=== PATIENT | female | born 1990 | race Caucasian/White ===

== ENCOUNTER 2023-03-27 15:00 | Outpatient (RCR) | payer OTHER, SELFPAY ==
--- NOTE | 2023-01-13 16:13 | OT.OP.EVAL ---
Visit Care Team Role Provider Type Alex Dominguez DO Family Provider Non-Staff Primary Care Provider Specialty: Medical Address: [address] [place] [address], [facility] [place], [address] Email: Vinita Carr MD Attending Provider Non-Staff Referring Provider Specialty: Medical Address: [address] [place] [address], [id number] Email: Occupational Therapy Initial Evaluation OT Outpatient Adult Evaluation Start: 01/13/23 15:41 Freq: Status: Active Protocol: Document 01/13/23 15:42 AMS (Rec: 01/13/23 16:12 AMS [id number]) General Information - Adult Plan of Care Dates 01/13/23 - 03/10/23 Insurance Information Prime Visit Start Time 15:00 Visit Stop Time 15:30 Total Visit Minutes 30 Treatment Setting Outpatient Care Note Type Initial Evaluation Identification Confirmed Yes Identification Confirmed By Self Goals Halfway Goals 1. Maame will be modified independent with execution of home exercise program utilizing provided written and visual instructions from therapist. 2. Maame will present with increased ability to engage in meaningful activities in a variety of environments 2a. This will be evidenced by obtaining a score of 15.00 or less on QuickDASH UE Outcome Measure. Assessment/Plan Treatment Assessment Maame is a 33 year-old right hand dominant female referred to outpatient OT secondary to R CTS. 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 Treatment included ice therapy, heat, passive distal UE stretches and wearing of R wrist brace at night. Indication of 3 out of 10 on Pain Assessment Grid relative to volar surface of R wrist and 7 out of 10 on Pain Assessment Grid relative to volar and dorsal 3rd, 4th and 5th digits when numbness occurs predominantly at night despite wearing of R wrist brace. QuickDASH UE Outcome Measure Score = 27.27; QuickDASH UE Outcome Measure Work Module Score = 12.5. Numbness/tingling reported in the 2nd and 3rd digits bilaterally w/ Reverse Phalen' s Test. However, report of numbness presenting in the 3rd , 4th and 5th digits of the R hand on the volar surface 3-4 inches distal to R wrist. c/o dorsal R thumb pain/discomfort w/ thumb tuck MP -> prox radial R wrist; however, no c/ o pain w/ strength testing. (+ ) bilateral thumb add tightness. 0-65 degrees active R wrist flex; 0-65 degrees active R wrist ext; 0-20 degrees active R wrist [address]; 0-35 degrees active R wrist UD. 0-70 degrees active L wrist flex; 0 -62 degrees active L wrist ext ; 0-20 degrees active L wrist RD; 0-35 degrees active L wrist UD. 62.0# of force R stem crusher ( compared to norm for women 30- 34 years of age 78.7 +/- 19.2) vs 59.0# of force L stem crusher ( compared to norm for women 30- 34 years of age 68.0 +/- 17.7) ; 52.0# of force R stem crusher w/ elbow extended vs 56.0# of force L stem crusher w/ elbow extended ; 13.0# of force R lateral pinch (compared to norm for women 30-34 years of age 18.7 +/- 3.0) vs 13.5# of force L lateral pinch (compared to norm for women 30-34 years of age 17.8 +/- 3.6); 8.0# of force R tip pinch (compared to norm for women 30-34 years of age 12.6 +/- 3.0) vs 7.5# of force L tip pinch (compared to norm for women 30-34 years of age 11.7 +/- 2.8) ; 10.5# of force R 3-jaw pinch (compared to norm for women 30-34 years of age 19.3 +/- 15.0) vs 11.0# of force L 3-jaw pinch ( compared to norm for women 30- 34 years of age 18.1 +/- 4.8). (-) c/o finger/hand pain/ discomfort w/ finger/stem crusher strength testing. Maame would likely benefit from home exercise program, which addresses weakness of hands/ fingers, range of motion, and change in sensation. Recommend assessing wrist strength. Home Exercise Program 01/13/23 = carpal ligament x 20 to 30 sec at wall; median nerve glide; thumb add self- myofascial technique 20-30 sec ; passive wrist flex and passive wrist ext 20-30 sec. Length of treatment (weeks) 8 Plan of Care Start Date 01/13/23 Plan of Care End Date 03/10/23 Treatment Frequency Once a Week Therapeutic Contents Active Range of Motion, Adaptive Equipment Education, Client Education,Functional Activities,Home Exercise Program,Joint Protection, Manual Therapy,Education, Neurodevelopment Treatment, Neuromuscular Re-Education, Self-Care,Stretching/ Flexibility Activities, Therapeutic Activities, Therapeutic Exercises, Modalities Modalities As Needed,As Prescribed Additional Types of Modalities Ice/Heat/Contrast baths/ Ultrasound/Paraffin
--- NOTE | 2023-02-05 16:05 | OT.OP.TRT ---
Visit Care Team Role Provider Type Alex Dominguez DO Family Provider Non-Staff Primary Care Provider Specialty: Medical Address: [address] [place] [address], [facility] [place], [address] Email: Vinita Carr MD Attending Provider Non-Staff Referring Provider Specialty: Medical Address: [address] [place] [address], [id number] Email: Occupational Therapy Treatment Note OT Outpatient Treatment Note - Adult Start: 01/13/23 15:41 Freq: Status: Active Protocol: Document 02/05/23 15:57 AMS (Rec: 02/05/23 16:05 AMS [id number]) OT Outpatient Adult Treatment Note Session Time Visit Start Time 15:00 Visit Stop Time 15:45 Total Visit Minutes 45 Visit Information Plan of Care Dates 01/13/23 - 03/10/23 Insurance Information [facility] Setting Treatment Setting Outpatient Care Visit Type Note Type Treatment Note General Information General Information Maame is a 33 year-old right hand dominant female referred to outpatient OT secondary to R CTS. 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 Treatment included ice therapy, heat, passive distal UE stretches and wearing of R wrist brace at night. - Subjective Identification Type Name Identification Reconciled With Medical Record Patient/Caregiver Compliance with Home Excellent Exercise Program - Objective Objective Measurements Please refer to below for progress towards meeting established OT goals: Jingle Writer Goals 1. Maame will be modified independent with execution of home exercise program utilizing provided written and visual instructions from therapist. 2. Maame will present with increased ability to engage in meaningful activities in a variety of environments 2a. This will be evidenced by obtaining a score of 15.00 or less on QuickDASH UE Outcome Measure. - Treatment 1 Descriptor Ultrasound. 20% duty cycle. 2. 2 w/cm2. x 8 minutes. Addressing inflammation. Skin intact pre- and post- treatment. Exercises 1 Descriptor Hand/Pinch strengthening. Medium firm theraputty. 2 x 10. Lateral razo pinch. 2 x 10. Lateral razo pinch w/ pull of theraputty. 3 x 10. Tip pinch. 2 x 10. Digit flex. - Assessment Assessment of Improvement (+) compliance w/ home exercise program. (+) c/o pain /discomfort of R thumb w/ thumb tuck and active wrist UD ; sensitivity to palpation. Advanced HEP; provision of medium firm green theraputty for home utilization. Recommend pursuing referral for outpatient PT given c/o R sh pain/discomfort w/ h/o pain /discomfort of R lateral/ posterior neck. Maame reported that she saw her PCP today and they recommended making another appt to address need for PT referral. Maame will be relocating to [place] in approx 3 weeks. Maame would likely benefit from home exercise program, which addresses weakness of hands/ fingers, range of motion, and change in sensation. Recommend assessing wrist strength. Home Exercise Program 02/05/23 = R thumb tuck w/ UD w / hold 20 to 30 sec. Provided with medium firm green theraputty for home use; discussed storage and care of theraputty. Instructed in digit/pinch strengthening ( including lateral razo pinch, tip pinch, gross digit flexion ). 01/13/23 = carpal ligament x 20 to 30 sec at wall; median nerve glide; thumb add self- myofascial technique 20-30 sec ; passive wrist flex and passive wrist ext 20-30 sec. - Plan Therapy Recommendations Continue with Current Program, Advance per Rehabilitation Protocol
--- NOTE | 2023-02-19 14:20 | OT.OP.TRT ---
Visit Care Team Role Provider Type Alex Dominguez DO Family Provider Non-Staff Primary Care Provider Specialty: Medical Address: [address] [place] [address], [facility] [place], [address] Email: Vinita Carr MD Attending Provider Non-Staff Referring Provider Specialty: Medical Address: [address] [place] [address], [phone] Email: Occupational Therapy Treatment Note OT Outpatient Treatment Note - Adult Start: 01/13/23 15:41 Freq: Status: Active Protocol: Document 02/19/23 14:14 AMS (Rec: 02/19/23 14:20 AMS [id number]) OT Outpatient Adult Treatment Note Session Time Visit Start Time 13:15 Visit Stop Time 14:00 Total Visit Minutes 45 Visit Information Plan of Care Dates 01/13/23 - 03/10/23 Insurance Information [facility] Setting Treatment Setting Outpatient Care Visit Type Note Type Treatment Note General Information General Information Maame is a 33 year-old right hand dominant female referred to outpatient OT secondary to R CTS. 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 Treatment included ice therapy, heat, passive distal UE stretches and wearing of R wrist brace at night. - Subjective Identification Type Name Identification Reconciled With Medical Record Observations Report of numbness post- previous treatment session in pm. Patient/Caregiver Compliance with Home Excellent Exercise Program - Objective Objective Measurements Please refer to below for progress towards meeting established OT goals: Mcfp Goals 1. Maame will be modified independent with execution of home exercise program utilizing provided written and visual instructions from therapist. 2. Maame will present with increased ability to engage in meaningful activities in a variety of environments 2a. This will be evidenced by obtaining a score of 15.00 or less on QuickDASH UE Outcome Measure. - Treatment 1 Descriptor Ultrasound. 20% duty cycle. 2. 2 w/cm2. x 10 minutes. Addressing inflammation. Skin intact pre- and post- treatment. Exercises 2 Descriptor Thumb exercises. Thumb opposition to finger pads. 1 x 5 cycles. Thumb opposition to base of fingers. 1 x 5 cycles. Resisted thumb extension. Medium sized rubberband - rubberband positioned slightly distal to MPJ. 3 x 10. Resisted thumb abduction. Medium sized rubberband - rubberband positioned slightly distal to MPJ. 3 x 10. 1 Descriptor Hand/Pinch strengthening. Medium firm theraputty. 2 x 10. Lateral razo pinch. 2 x 10. Lateral razo pinch w/ pull of theraputty. 3 x 10. Tip pinch. 2 x 10. Digit flex. - Assessment Assessment of Improvement Currently in process of moving to new home located in [place]. Report of numbness in pm post- previous treatment session. (-) c/o pain/ discomfort w/ thumb opposition to pads of fingers and/or to base of fingers 2-5. (-) c/o pain/discomfort w/ thumb tuck w/ UD. Introduced thumb strengthening w/ minimal resistance relative to thumb abd and thumb extension; tolerated these exercises w/o signs of discomfort (verbal or nonverbal). Overall, good session. Maame would likely benefit from home exercise program, which addresses weakness of hands/ fingers, range of motion, and change in sensation. Recommend assessing wrist strength. Home Exercise Program 02/19/23 = Thumb strengthening via utilization of medium rubberband. Rec thumb ext and thumb abd 3 x 10. 02/05/23 = R thumb tuck w/ UD w / hold 20 to 30 sec. Provided with medium firm green theraputty for home use; discussed storage and care of theraputty. Instructed in digit/pinch strengthening ( including lateral razo pinch, tip pinch, gross digit flexion ). 01/13/23 = carpal ligament x 20 to 30 sec at wall; median nerve glide; thumb add self- myofascial technique 20-30 sec ; passive wrist flex and passive wrist ext 20-30 sec. - Plan Therapy Recommendations Advance per Rehabilitation Protocol
--- NOTE | 2023-02-27 16:00 | OT.OP.TRT ---
Visit Care Team Role Provider Type Alex Dominguez DO Family Provider Non-Staff Primary Care Provider Specialty: Medical Address: [address] [place] [address], [place], [address] Email: Vinita Carr MD Attending Provider Non-Staff Referring Provider Specialty: Medical Address: [address] [place] [address], [id number] Email: Occupational Therapy Treatment Note OT Outpatient Treatment Note - Adult Start: 01/13/23 15:41 Freq: Status: Active Protocol: Document 02/27/23 16:00 AMS (Rec: 02/28/23 09:01 AMS [id number]) OT Outpatient Adult Treatment Note Session Time Visit Start Time 14:55 Visit Stop Time 15:40 Total Visit Minutes 45 Visit Information Plan of Care Dates 01/13/23 - 03/10/23 Insurance Information [facility] Setting Treatment Setting Outpatient Care Visit Type Note Type Treatment Note General Information General Information Maame is a 33 year-old right hand dominant female referred to outpatient OT secondary to R CTS. 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 Treatment included ice therapy, heat, passive distal UE stretches and wearing of R wrist brace at night. - Subjective Identification Type Name Identification Reconciled With Medical Record Observations Maame reports that she starts PT for her R shoulder next week. Patient/Caregiver Compliance with Home Excellent Exercise Program - Objective Objective Measurements Please refer to below for progress towards meeting established OT goals: Behavioral Health Specialist Goals 1. Maame will be modified independent with execution of home exercise program utilizing provided written and visual instructions from therapist. 2. Maame will present with increased ability to engage in meaningful activities in a variety of environments 2a. This will be evidenced by obtaining a score of 15.00 or less on QuickDASH UE Outcome Measure. - Treatment 1 Descriptor Ultrasound. 20% duty cycle. 2. 0 w/cm2. x 10 minutes. Addressing inflammation. Skin intact pre- and post- treatment. Exercises 5 Descriptor Wrist strengthening w/ use of weighted spherical ball. Underhand toss. 3.3# spherical ball. 3 x 15. Overhand toss. 3.3# spherical ball. 3 x 15. Toss between hands. 3.3# spherical ball. 3 x 10. 4 Descriptor Wrist strengthening w/ use of DB. R Wrist ext. 3 x 15. 3# DB. Seated. Use of LE. R Wrist flex. 3 x 15. 3# DB. Seated. Use of LE. R Wrist RD. 3 x 15. 3# DB. Seated. Use of LE. R Wrist UD. 3 x 15. 3# DB. Seated. 3 Descriptor PROM. Passive wrist stretches. Bilateral. 20 sec hold per stretch. Self-release. Carpal ligament. R. x 20 sec hold per stretch. 2 Descriptor Thumb exercises. Thumb opposition to finger pads. 1 x 5 cycles. Thumb opposition to base of fingers. 1 x 5 cycles. Resisted thumb extension. Medium sized rubberband - rubberband positioned slightly distal to MPJ. 3 x 10. Resisted thumb abduction. Medium sized rubberband - rubberband positioned slightly distal to MPJ. 3 x 10. 1 Descriptor Hand/Pinch strengthening. Medium firm theraputty. 2 x 10. Lateral razo pinch. 2 x 10. Lateral razo pinch w/ pull of theraputty. 3 x 10. Tip pinch. 2 x 10. Digit flex. - Assessment Assessment of Improvement Denial of pain/discomfort w/ thumb tuck and wrist UD; denial of pain/discomfort w/ isometric resistance w/ lateral razo pinch and thumb ext. Numbness reported w/ carpal ligament stretch at wall R w/ ceasing of stretch post 20 seconds; report of numbness second set of spherical weighted ball forearm pronation/wrist ext/ overhand toss and catch. Able to complete 3 sets w/ rest break and report of relief w/ shaking of hand w/ wrist in ext. Rec introducing resisted home program for wrist strengthening w/ use of TB. Overall, good session. Maame would likely benefit from home exercise program, which addresses weakness of hands/ fingers, range of motion, and change in sensation. Recommend assessing wrist strength. Home Exercise Program 02/19/23 = Thumb strengthening via utilization of medium rubberband. Rec thumb ext and thumb abd 3 x 10. 02/05/23 = R thumb tuck w/ UD w / hold 20 to 30 sec. Provided with medium firm green theraputty for home use; discussed storage and care of theraputty. Instructed in digit/pinch strengthening ( including lateral razo pinch, tip pinch, gross digit flexion ). 01/13/23 = carpal ligament x 20 to 30 sec at wall; median nerve glide; thumb add self- myofascial technique 20-30 sec ; passive wrist flex and passive wrist ext 20-30 sec. - Plan Therapy Recommendations Advance per Rehabilitation Protocol
--- NOTE | 2023-03-06 16:00 | OT.OP.TRT ---
Visit Care Team Role Provider Type Alex Dominguez DO Family Provider Non-Staff Primary Care Provider Specialty: Medical Address: [address] [place] [address], [place], [address] Email: Vinita Carr MD Attending Provider Non-Staff Referring Provider Specialty: Medical Address: [address] [place] [address], [phone] Email: Occupational Therapy Treatment Note OT Outpatient Treatment Note - Adult Start: 01/13/23 15:41 Freq: Status: Active Protocol: Document 03/06/23 16:00 AMS (Rec: 03/07/23 10:49 AMS [id number]) OT Outpatient Adult Treatment Note Session Time Visit Start Time 15:00 Visit Stop Time 15:45 Total Visit Minutes 45 Visit Information Plan of Care Dates 01/13/23 - 03/10/23 Insurance Information [facility] Setting Treatment Setting Outpatient Care Visit Type Note Type Treatment Note General Information General Information Maame is a 33 year-old right hand dominant female referred to outpatient OT secondary to R CTS. 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 Treatment included ice therapy, heat, passive distal UE stretches and wearing of R wrist brace at night. - Subjective Identification Type Name Identification Reconciled With Medical Record Observations Maame reported that she started PT for her R shoulder this morning. Patient/Caregiver Compliance with Home Excellent Exercise Program - Objective Objective Measurements Please refer to below for progress towards meeting established OT goals: Plate Glass Installer Helper Goals 1. Maame will be modified independent with execution of home exercise program utilizing provided written and visual instructions from therapist. 2. Maame will present with increased ability to engage in meaningful activities in a variety of environments 2a. This will be evidenced by obtaining a score of 15.00 or less on QuickDASH UE Outcome Measure. - Treatment 1 Descriptor Ultrasound. 20% duty cycle. 2. 0 w/cm2. x 10 minutes. Addressing inflammation. Skin intact pre- and post- treatment. Exercises 7 Descriptor Wrist strengthening w/ use of dowel. Wrist flex. 5# DB. 5 cycles Wrist ext. 5# DB. 5 cycles 6 Descriptor Wrist strengthening w/ use of TB R Wrist ext. 3 x 15. TB #4. Seated. Use of LE. R Wrist flex. 3 x 15. TB #4. Seated. Use of LE. R Wrist RD. 3 x 15. TB #4. Seated. Use of LE. R Wrist UD. 3 x 15. TB #4. Seated. Use of TT 5 Descriptor Wrist strengthening w/ use of weighted spherical ball. Underhand toss. 3.3# spherical ball. 3 x 15. Overhand toss. 3.3# spherical ball. 3 x 15. Toss between hands. 4.4# spherical ball. 3 x 15. 4 Descriptor Wrist strengthening w/ use of DB. R Wrist ext. 3 x 15. 3# DB. Seated. Use of LE. R Wrist flex. 3 x 15. 3# DB. Seated. Use of LE. R Wrist RD. 3 x 15. 3# DB. Seated. Use of LE. R Wrist UD. 3 x 15. 3# DB. Seated. 3 Descriptor PROM/Nerve glides/Tendon gliding Passive wrist stretches. Bilateral. 20 sec hold per stretch. Self-release. Carpal ligament. R. x 20 sec hold per stretch. Median nerve glide - thumb stretch x 2. Modified median nerve glide. x 2. Tendon gliding. x 7 cycles. - Assessment Assessment of Improvement Initiated wrist strengthening w/ utilization of theraband; provided TB #4 for home utilization. Instructed in tendon glides and reviewed passive range of motion exercises, median nerve glides , and self-myofascial releases . Upgraded resistance exercises completed in treatment session. Overall, good session. Maame would likely benefit from home exercise program, which addresses weakness of hands/ fingers, range of motion, and change in sensation. Recommend assessing wrist strength. Home Exercise Program 03/06/23 = Provided w/ TB #4 for home utilization for wrist strengthening. 02/19/23 = Thumb strengthening via utilization of medium rubberband. Rec thumb ext and thumb abd 3 x 10. 02/05/23 = R thumb tuck w/ UD w / hold 20 to 30 sec. Provided with medium firm green theraputty for home use; discussed storage and care of theraputty. Instructed in digit/pinch strengthening ( including lateral razo pinch, tip pinch, gross digit flexion ). 01/13/23 = carpal ligament x 20 to 30 sec at wall; median nerve glide; thumb add self- myofascial technique 20-30 sec ; passive wrist flex and passive wrist ext 20-30 sec. - Plan Therapy Recommendations Advance per Rehabilitation Protocol
--- NOTE | 2023-03-13 16:00 | OT.OPPOC ---
Physical, Occupational & Speech Therapy At [facility] Maame Griggs [id number] 1990 Visit Care Team Role Provider Type Alex Dominguez DO Family Provider Non-Staff Primary Care Provider Address: [address] [place] [address], [place], [address] Vinita Carr MD Attending Provider Non-Staff Referring Provider Address: [address] [place] [address], [id number] Occupational Therapy Plan of Care OT Outpatient Adult Evaluation Start: 01/13/23 15:41 Freq: Status: Active Protocol: Document 01/13/23 15:42 AMS (Rec: 01/13/23 16:12 AMS [id number]) General Information - Adult Visit Information Plan of Care Dates 01/13/23 - 03/10/23 Insurance Information Prime Session Time Visit Start Time 15:00 Visit Stop Time 15:30 Total Visit Minutes 30 Setting Treatment Setting Outpatient Care Visit Type Note Type Initial Evaluation Identification Identification Confirmed Yes Identification Confirmed By Self Goals Emergency Medical Dispatcher Goals Emergency Medical Dispatcher Goals 1. Maame will be modified independent with execution of home exercise program utilizing provided written and visual instructions from therapist. 2. Maame will present with increased ability to engage in meaningful activities in a variety of environments 2a. This will be evidenced by obtaining a score of 15.00 or less on QuickDASH UE Outcome Measure. Assessment/Plan Assessment Treatment Assessment Maame is a 33 year-old right hand dominant female referred to outpatient OT secondary to R CTS. 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 Treatment included ice therapy, heat, passive distal UE stretches and wearing of R wrist brace at night. Indication of 3 out of 10 on Pain Assessment Grid relative to volar surface of R wrist and 7 out of 10 on Pain Assessment Grid relative to volar and dorsal 3rd, 4th and 5th digits when numbness occurs predominantly at night despite wearing of R wrist brace. QuickDASH UE Outcome Measure Score = 27.27; QuickDASH UE Outcome Measure Work Module Score = 12.5. Numbness/tingling reported in the 2nd and 3rd digits bilaterally w/ Reverse Phalen' s Test. However, report of numbness presenting in the 3rd , 4th and 5th digits of the R hand on the volar surface 3-4 inches distal to R wrist. c/o dorsal R thumb pain/discomfort w/ thumb tuck MP -> prox radial R wrist; however, no c/ o pain w/ strength testing. (+ ) bilateral thumb add tightness. 0-65 degrees active R wrist flex; 0-65 degrees active R wrist ext; 0-20 degrees active R wrist [address]; 0-35 degrees active R wrist UD. 0-70 degrees active L wrist flex; 0 -62 degrees active L wrist ext ; 0-20 degrees active L wrist RD; 0-35 degrees active L wrist UD. 62.0# of force R pump and still operator ( compared to norm for women 30- 34 years of age 78.7 +/- 19.2) vs 59.0# of force L pump and still operator ( compared to norm for women 30- 34 years of age 68.0 +/- 17.7) ; 52.0# of force R pump and still operator w/ elbow extended vs 56.0# of force L pump and still operator w/ elbow extended ; 13.0# of force R lateral pinch (compared to norm for women 30-34 years of age 18.7 +/- 3.0) vs 13.5# of force L lateral pinch (compared to norm for women 30-34 years of age 17.8 +/- 3.6); 8.0# of force R tip pinch (compared to norm for women 30-34 years of age 12.6 +/- 3.0) vs 7.5# of force L tip pinch (compared to norm for women 30-34 years of age 11.7 +/- 2.8) ; 10.5# of force R 3-jaw pinch (compared to norm for women 30-34 years of age 19.3 +/- 15.0) vs 11.0# of force L 3-jaw pinch ( compared to norm for women 30- 34 years of age 18.1 +/- 4.8). (-) c/o finger/hand pain/ discomfort w/ finger/pump and still operator strength testing. Maame would likely benefit from home exercise program, which addresses weakness of hands/ fingers, range of motion, and change in sensation. Recommend assessing wrist strength. Home Exercise Program 01/13/23 = carpal ligament x 20 to 30 sec at wall; median nerve glide; thumb add self- myofascial technique 20-30 sec ; passive wrist flex and passive wrist ext 20-30 sec. Plan Length of treatment (weeks) 8 Plan of Care Start Date 01/13/23 Plan of Care End Date 03/10/23 Treatment Frequency Once a Week Therapeutic Contents Active Range of Motion, Adaptive Equipment Education, Client Education,Functional Activities,Home Exercise Program,Joint Protection, Manual Therapy,Education, Neurodevelopment Treatment, Neuromuscular Re-Education, Self-Care,Stretching/ Flexibility Activities, Therapeutic Activities, Therapeutic Exercises, Modalities Modalities As Needed,As Prescribed Additional Types of Modalities Ice/Heat/Contrast baths/ Ultrasound/Paraffin Functional Wrist/Hand Scan Hand Side Sensory Assessment Sensory Profile2 OT Outpatient Treatment Note - Adult Start: 01/13/23 15:41 Freq: Status: Active Protocol: Document 03/13/23 16:00 AMS (Rec: 03/14/23 08:30 AMS [id number]) OT Outpatient Adult Treatment Note Session Time Visit Start Time 15:00 Visit Stop Time 15:45 Total Visit Minutes 45 Visit Information Visit Number [id number] Plan of Care Dates 03/10/23 - 04/21/23 Insurance Information Prime; EVAL CHARGE ONLY; *auth 12 visits Setting Treatment Setting Outpatient Care Visit Type Note Type Progress Note General Information General Information Maame is a 33 year-old right hand dominant female referred to outpatient OT secondary to R CTS. 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 Treatment included ice therapy, heat, passive distal UE stretches and wearing of R wrist brace at night. - Subjective Identification Type Name Identification Reconciled With Medical Record Observations No new concerns were reported. Patient/Caregiver Compliance with Home Excellent Exercise Program - Objective Objective Measurements Please refer to below for progress towards meeting established OT goals: Emergency Medical Dispatcher Goals 1. Maame will be modified independent with execution of home exercise program utilizing provided written and visual instructions from therapist. 2. Maame will present with increased ability to engage in meaningful activities in a variety of environments 2a. This will be evidenced by obtaining a score of 15.00 or less on QuickDASH UE Outcome Measure. - Exercises 7 Descriptor Wrist strengthening w/ use of dowel. Wrist flex. 5# DB. 5 cycles Wrist ext. 5# DB. 5 cycles 6 Descriptor Wrist strengthening w/ use of TB R Wrist ext. 3 x 15. TB #4. Seated. Use of LE. R Wrist flex. 3 x 15. TB #4. Seated. Use of LE. R Wrist RD. 3 x 15. TB #4. Seated. Use of LE. R Wrist UD. 3 x 15. TB #4. Seated. Use of TT 5 Descriptor Wrist strengthening w/ use of weighted spherical ball. Wrist arc. 4.4# spherical ball . 3 x 15. Underhand toss. 4.4# spherical ball. 3 x 15. Overhand toss. 4.4# spherical ball. 3 x 15. Toss between hands. 4.4# spherical ball. 3 x 15. 3 Descriptor PROM/Nerve glides/Tendon gliding Passive wrist stretches. Bilateral. 20 sec hold per stretch. Self-release. Carpal ligament. R. x 20 sec hold per stretch. Median nerve glide - thumb stretch x 2. Modified median nerve glide. x 2. Tendon gliding. x 7 cycles. - Assessment Assessment of Improvement Maame has made some progress w/ outpatient OT; therapist has been able to upgrade exercises completed in treatment session, including amount of resistance w/ utilization of weighted spherical ball, and advance home exercise program, including wrist strengthening , passive range of motion, tendon glides, median nerve glide, and utilization of resistance putty. Exercises were also provided to address thumb pain/discomfort when there was c/o discomfort w/ R thumb tuck into palm suggesting inflammation of extensor/abd. Maame is no longer c/o of thumb pain and is able to execute thumb tuck w/ wrist UD w/ no exacerbation of symptoms. Maame cont to intermittently c/o median nerve compression and discomfort is impacting her day-to-day life. Maame has recently started PT to address R shoulder pain/discomfort as well. Therapist introduced paraffin bath as a modality in today's treatment session; will need to follow-up to determine impact on flexibility/sensation and pain /discomfort. Cont outpatient OT is rec at this time w/ rec to return to PCP to explore less conservative measures of treatment as needed/vs evaluation by UE privacy specialist. Home Exercise Program 03/13/23 = Visual/Written instructions provided for passive wrist flex, passive wrist ext, median nerve glide, tendon gliding, and wrist strength utilizing previously provided TB #4 = wrist ext/ wrist flex/wrist RD/wrist UD 03/06/23 = Provided w/ TB #4 for home utilization for wrist strengthening. 02/19/23 = Thumb strengthening via utilization of medium rubberband. Rec thumb ext and thumb abd 3 x 10. 02/05/23 = R thumb tuck w/ UD w / hold 20 to 30 sec. Provided with medium firm green theraputty for home use; discussed storage and care of theraputty. Instructed in digit/pinch strengthening ( including lateral razo pinch, tip pinch, gross digit flexion ). 01/13/23 = carpal ligament x 20 to 30 sec at wall; median nerve glide; thumb add self- myofascial technique 20-30 sec ; passive wrist flex and passive wrist ext 20-30 sec. - Plan Therapy Recommendations Advance per Rehabilitation Protocol Comment 6 weeks Frequency of Treatment Once a Week Therapeutic Contents Active Range of Motion, Adaptive Equipment Education, Client Education,Functional Activities,Home Exercise Program,Joint Protection, Manual Therapy,Education, Neurodevelopment Treatment, Neuromuscular Re-Education, Self-Care,Stretching/ Flexibility Activities, Therapeutic Activities, Therapeutic Exercises, Modalities Modalities As Needed,As Prescribed Additional Types of Modalities Heat/Ice/Contrast Baths/ Ultrasound/Paraffin bath Electronically Signed by: Pura Griggs OT 03/14/23 0938 If you are in agreement with this Plan of Care, please return a signed and dated copy. I have reviewed this Plan of Care and certify that the skilled therapy services above are required to meet the patient?s needs. Physician Signature Date Printed Name and Credentials Clinical Instructor Signature Printed Name and Credentials
--- NOTE | 2023-03-20 16:00 | OT.OP.TRT ---
Visit Care Team Role Provider Type Alex Dominguez DO Family Provider Non-Staff Primary Care Provider Specialty: Medical Address: [address] [place] [address], [facility] [place], [address] Email: Vinita Carr MD Attending Provider Non-Staff Referring Provider Specialty: Medical Address: [address] [place] [address], [id number] Email: Occupational Therapy Treatment Note OT Outpatient Treatment Note - Adult Start: 01/13/23 15:41 Freq: Status: Active Protocol: Document 03/20/23 16:00 AMS (Rec: 03/21/23 12:25 AMS [id number]) OT Outpatient Adult Treatment Note Session Time Visit Start Time 15:00 Visit Stop Time 15:48 Total Visit Minutes 48 Visit Information Visit Number 11/04 Plan of Care Dates 03/10/23 - 04/21/23 Insurance Information Prime; EVAL CHARGE ONLY; *auth 12 visits Setting Treatment Setting Outpatient Care Visit Type Note Type Treatment Note General Information General Information Maame is a 33 year-old right hand dominant female referred to outpatient OT secondary to R CTS. 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 Treatment included ice therapy, heat, passive distal UE stretches and wearing of R wrist brace at night. - Subjective Identification Type Name Identification Reconciled With Medical Record Observations Report of having PT this morning. Patient/Caregiver Compliance with Home Excellent Exercise Program - Objective Objective Measurements Please refer to below for progress towards meeting established OT goals: Alf Goals 1. Maame will be modified independent with execution of home exercise program utilizing provided written and visual instructions from therapist. 2. Maame will present with increased ability to engage in meaningful activities in a variety of environments 2a. This will be evidenced by obtaining a score of 15.00 or less on QuickDASH UE Outcome Measure. - Exercises 8 Descriptor Blue flexbar. Wrist flex. 3 x 15. Wrist ext. 3 x 15. Supination. 3 x 10. Pronation. 3 x 10. Flexbar twist. 3 x 10. 6 Descriptor Wrist strengthening w/ use of TB R Wrist ext. 3 x 15. TB #4. Seated. Use of LE. R Wrist flex. 3 x 15. TB #4. Seated. Use of LE. R Wrist RD. 3 x 15. TB #4. Seated. Use of LE. R Wrist UD. 3 x 15. TB #4. Seated. Use of TT 5 Descriptor Wrist strengthening w/ use of weighted spherical ball. Wrist arc. 4.4# spherical ball . 3 x 15. Underhand toss. 4.4# spherical ball. 3 x 15. Overhand toss. 4.4# spherical ball. 3 x 15. Toss between hands. 4.4# spherical ball. 3 x 15. 3 Descriptor PROM/Nerve glides/Tendon gliding Passive wrist stretches. Bilateral. 20 sec hold per stretch. Self-release. Carpal ligament. R. x 20 sec hold per stretch. Median nerve glide - thumb stretch x 2. Modified median nerve glide. x 2. Tendon gliding. x 7 cycles. - Assessment Assessment of Improvement Reviewed home exercise program recommendations = median nerve glide, tendon glides, passive wrist flex and wrist ext w/ elbow near full ext, wearing of night brace w/ positioning of wrist in slight ext, icing versus contrast baths versus paraffin for swelling management (vs taking of oral anti-inflammatory medication), and environmental modifications/adaptive equipment to avoid compression of nerve. Given continued c/o intermittent numbness and/or tingling of the distal R UE, Maame would likely benefit from nerve conduction study and referral to upper extremity legal financial specialist in order to be evaluated and be given options for less conservative methods of treatment as deemed fit by physician (e.g., CTR, corticosteroid injection, etc) . Home Exercise Program 03/13/23 = Visual/Written instructions provided for passive wrist flex, passive wrist ext, median nerve glide, tendon gliding, and wrist strength utilizing previously provided TB #4 = wrist ext/ wrist flex/wrist RD/wrist UD 03/06/23 = Provided w/ TB #4 for home utilization for wrist strengthening. 02/19/23 = Thumb strengthening via utilization of medium rubberband. Rec thumb ext and thumb abd 3 x 10. 9/13/23 = R thumb tuck w/ UD w / hold 20 to 30 sec. Provided with medium firm green theraputty for home use; discussed storage and care of theraputty. Instructed in digit/pinch strengthening ( including lateral razo pinch, tip pinch, gross digit flexion ). 01/13/23 = carpal ligament x 20 to 30 sec at wall; median nerve glide; thumb add self- myofascial technique 20-30 sec ; passive wrist flex and passive wrist ext 20-30 sec. - Plan Therapy Recommendations Advance per Rehabilitation Protocol Other Referrals UE legal financial specialist, EMG - nerve conduction study
--- NOTE | 2023-03-27 16:06 | OT.OP.DC ---
Visit Care Team Role Provider Type Alex Dominguez DO Family Provider Non-Staff Primary Care Provider Address: [address] [place] [address], [place], [address] Email: Vinita Carr MD Attending Provider Non-Staff Referring Provider Address: [address] [place] [address], [id number] Email: OT Outpatient OT Outpatient Adult Evaluation Start: 01/13/23 15:41 Freq: Status: Active Protocol: Document 01/13/23 15:42 AMS (Rec: 01/13/23 16:12 AMS [id number]) General Information - Adult Visit Information Plan of Care Dates 01/13/23 - 03/10/23 Insurance Information Prime Session Time Visit Start Time 15:00 Visit Stop Time 15:30 Total Visit Minutes 30 Setting Treatment Setting Outpatient Care Visit Type Note Type Initial Evaluation Identification Identification Confirmed Yes Identification Confirmed By Self Goals Business Education Instructor Goals Care Home Goals 1. Maame will be modified independent with execution of home exercise program utilizing provided written and visual instructions from therapist. 2. Maame will present with increased ability to engage in meaningful activities in a variety of environments 2a. This will be evidenced by obtaining a score of 15.00 or less on QuickDASH UE Outcome Measure. Assessment/Plan Assessment Treatment Assessment Maame is a 33 year-old right hand dominant female referred to outpatient OT secondary to R CTS. 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 Treatment included ice therapy, heat, passive distal UE stretches and wearing of R wrist brace at night. Indication of 3 out of 10 on Pain Assessment Grid relative to volar surface of R wrist and 7 out of 10 on Pain Assessment Grid relative to volar and dorsal 3rd, 4th and 5th digits when numbness occurs predominantly at night despite wearing of R wrist brace. QuickDASH UE Outcome Measure Score = 27.27; QuickDASH UE Outcome Measure Work Module Score = 12.5. Numbness/tingling reported in the 2nd and 3rd digits bilaterally w/ Reverse Phalen' s Test. However, report of numbness presenting in the 3rd , 4th and 5th digits of the R hand on the volar surface 3-4 inches distal to R wrist. c/o dorsal R thumb pain/discomfort w/ thumb tuck MP -> prox radial R wrist; however, no c/ o pain w/ strength testing. (+ ) bilateral thumb add tightness. 0-65 degrees active R wrist flex; 0-65 degrees active R wrist ext; 0-20 degrees active R wrist [address]; 0-35 degrees active R wrist UD. 0-70 degrees active L wrist flex; 0 -62 degrees active L wrist ext ; 0-20 degrees active L wrist RD; 0-35 degrees active L wrist UD. 62.0# of force R block mechanic ( compared to norm for women 30- 34 years of age 78.7 +/- 19.2) vs 59.0# of force L block mechanic ( compared to norm for women 30- 34 years of age 68.0 +/- 17.7) ; 52.0# of force R block mechanic w/ elbow extended vs 56.0# of force L block mechanic w/ elbow extended ; 13.0# of force R lateral pinch (compared to norm for women 30-34 years of age 18.7 +/- 3.0) vs 13.5# of force L lateral pinch (compared to norm for women 30-34 years of age 17.8 +/- 3.6); 8.0# of force R tip pinch (compared to norm for women 30-34 years of age 12.6 +/- 3.0) vs 7.5# of force L tip pinch (compared to norm for women 30-34 years of age 11.7 +/- 2.8) ; 10.5# of force R 3-jaw pinch (compared to norm for women 30-34 years of age 19.3 +/- 15.0) vs 11.0# of force L 3-jaw pinch ( compared to norm for women 30- 34 years of age 18.1 +/- 4.8). (-) c/o finger/hand pain/ discomfort w/ finger/block mechanic strength testing. Maame would likely benefit from home exercise program, which addresses weakness of hands/ fingers, range of motion, and change in sensation. Recommend assessing wrist strength. Home Exercise Program 01/13/23 = carpal ligament x 20 to 30 sec at wall; median nerve glide; thumb add self- myofascial technique 20-30 sec ; passive wrist flex and passive wrist ext 20-30 sec. Plan Length of treatment (weeks) 8 Plan of Care Start Date 01/13/23 Plan of Care End Date 03/10/23 Treatment Frequency Once a Week Therapeutic Contents Active Range of Motion, Adaptive Equipment Education, Client Education,Functional Activities,Home Exercise Program,Joint Protection, Manual Therapy,Education, Neurodevelopment Treatment, Neuromuscular Re-Education, Self-Care,Stretching/ Flexibility Activities, Therapeutic Activities, Therapeutic Exercises, Modalities Modalities As Needed,As Prescribed Additional Types of Modalities Ice/Heat/Contrast baths/ Ultrasound/Paraffin Functional Wrist/Hand Scan Hand Side Sensory Assessment Sensory Profile2 OT Outpatient Treatment Note - Adult Start: 01/13/23 15:41 Freq: Status: Active Protocol: Document 03/27/23 15:56 AMS (Rec: 03/27/23 16:05 [facility] [id number]) OT Outpatient Adult Treatment Note Session Time Visit Start Time 15:00 Visit Stop Time 15:45 Total Visit Minutes 45 Visit Information Visit Number [id number] Plan of Care Dates 03/10/23 - 04/21/23 Insurance Information Prime; EVAL CHARGE ONLY; *auth 12 visits Setting Treatment Setting Outpatient Care Visit Type Note Type Treatment Note General Information General Information Maame is a 33 year-old right hand dominant female referred to outpatient OT secondary to R CTS. 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 Treatment included ice therapy, heat, passive distal UE stretches and wearing of R wrist brace at night. - Subjective Identification Type Name Identification Reconciled With Medical Record Observations Report of having PT tomorrow morning. Indicated 1 out of 10 on Pain Assessment Grid relative to volar/dorsal surfaces of R thumb, volar surface of R wrist. QuickDASH UE Outcome Measure Score = 9. 09; QuickDASH Work Module Score = 0.00. Patient/Caregiver Compliance with Home Excellent Exercise Program - Objective Objective Measurements Please refer to below for progress towards meeting established OT goals: Care Home Goals ALL GOALS MET OF 03/27/23 1. Maame will be modified independent with execution of home exercise program utilizing provided written and visual instructions from therapist. 2. Maame will present with increased ability to engage in meaningful activities in a variety of environments 2a. This will be evidenced by obtaining a score of 15.00 or less on QuickDASH UE Outcome Measure. *MET 03/27/23; Score = 9.09 - Exercises 8 Descriptor Blue flexbar. Wrist flex. 3 x 15. Wrist ext. 3 x 15. Supination. 3 x 10. Pronation. 3 x 10. Flexbar twist. 3 x 10. 3 Descriptor PROM/Nerve glides/Tendon gliding Passive wrist stretches. Bilateral. 20 sec hold per stretch. Median nerve glide - thumb stretch x 2. Modified median nerve glide. x 2. - Assessment Assessment of Improvement Reviewed home exercise program recommendations = median nerve glide, tendon glides, passive wrist flex and wrist ext w/ elbow near full ext, wearing of night brace w/ positioning of wrist in slight ext, icing versus contrast baths versus paraffin for swelling management (vs taking of oral anti-inflammatory medication), and environmental modifications/adaptive equipment to avoid compression of nerve. Completed updated Pain Assessment Grid and indicated 1 out of 10 on pain scale (versus initial indication of 3 out of 10 on Pain Assessment Grid relative to volar surface of R wrist and 7 out of 10 on Pain Assessment Grid relative to volar and dorsal 3rd, 4th and 5th digits when numbness occurs predominantly at night despite wearing of R wrist brace). Completed updated QuickDASH UE Outcome Measure and obtained a score of 9.09 ( versus initial QuickDASH UE Outcome Measure Score of 27.27 ); completed updated QuickDASH UE Outcome Measure Work Module and obtained a score of 12.5). Maame is independent with execution of home exercise program. Thus, has met all established goals for outpatient OT. However, given continued c/o intermittent numbness and/or tingling of the distal R UE, Maame would likely benefit from nerve conduction study and referral to upper extremity epic cupid specialists in order to be evaluated and be given options for less conservative methods of treatment as deemed fit by physician (e.g., CTR, corticosteroid injection, etc) . Home Exercise Program 03/13/23 = Visual/Written instructions provided for passive wrist flex, passive wrist ext, median nerve glide, tendon gliding, and wrist strength utilizing previously provided TB #4 = wrist ext/ wrist flex/wrist RD/wrist UD 03/06/23 = Provided w/ TB #4 for home utilization for wrist strengthening. 02/19/23 = Thumb strengthening via utilization of medium rubberband. Rec thumb ext and thumb abd 3 x 10. 02/05/23 = R thumb tuck w/ UD w / hold 20 to 30 sec. Provided with medium firm green theraputty for home use; discussed storage and care of theraputty. Instructed in digit/pinch strengthening ( including lateral razo pinch, tip pinch, gross digit flexion ). 01/13/23 = carpal ligament x 20 to 30 sec at wall; median nerve glide; thumb add self- myofascial technique 20-30 sec ; passive wrist flex and passive wrist ext 20-30 sec. - Plan Therapy Recommendations Discharge from Occupational Therapy Other Referrals UE epic cupid specialists, EMG - nerve conduction study
== END 2023-04-08 11:27 | disposition home or self-care (01) ==
LOC: OT 15:00
PROVIDERS: Referring Provider Student in an Organized Health Care Education/Training Program; Visit Provider Student in an Organized Health Care Education/Training Program
DX: G56.01 Carpal tunnel syndrome, right upper limb (principal); R53.1 Weakness
CPT/HCPCS: 97018; 97035; 97110; 97165; 97530